=== PATIENT | female | born 1975 | race Caucasian/White ===

== ENCOUNTER 2018-05-23 19:52 | Emergency (ER) | payer OTHER, SELFPAY ==
[2018-05-23 20:10] VITALS: BP 111/65; PULSE 106; RESP 20; TEMP 37.8; O2SAT 99
[2018-05-23 20:17] VITALS: RESP 19
--- NOTE | 2018-05-23 20:29 | W.ED.GENAD ---
Discharge Plan Disposition Patient Disposition: HOME Condition: Good Discharge Details Chief Complaint: GenMedical Clinical Impression: Ovarian cyst, right Primary Care Provider: Mariaa,Local ED Provider: John Forrest Meds and New Rx's Prescriptions: No Action diphenhydramine HCl [Benadryl] 25 mg Capsule 25 mg PO HS RF: 0 Discharge Instructions Instructions: Ovarian Cyst (ED) Additional Instructions: May use ibuprofen as needed for pain. You should follow-up with your [employer] when you return to [place]. Return to ED if you develop high fever, worsening pain, persistent vomiting, other concerns. Referrals: Primary Care Provider [Outside] Medical Decision Making Patient presenting to ED because of right lower quadrant and flank pain. Maybe had hematuria today but not clear. Not describing vaginal bleeding or pelvic pain. She has other multiple complaints related to ENT/respiratory symptoms which she has had for months. She silva been on antibiotics. They are not acutely worse. We have discussed follow-up with her primary back in [place]. We will evaluate the acute symptoms of right lower quadrant pain. Her abdomen is completely benign. Her pain is not pelvic in nature. Urine test is negative. Differential includes kidney stone. Less likely appendicitis. Have ordered IV to give Toradol and Zofran. We will check labs. Will check a stone study. Urinalysis pending. Laboratory studies for the most part unremarkable. White count a little low at 3.89. Absolute neutrophils normal. Creatinine 1.3 but no baseline at this hospital; a little bit high but probably fine for this patient. Urine with small blood and small leukocyte esterase but is contaminated and would not treat for UTI. CT scan does not show evidence of kidney stones. There is a 2.6 cm ovarian cyst. Patient has history of same. No other acute process on CAT scan. Will be discharged home to use nonsteroidals as needed and follow-up with her [employer] back in [place]. Lab Data Lab results reviewed: Yes I reviewed the patient's lab results. HPI General Mode of arrival: ambulatory. Date/Time Provider Initiated Documentation: 05/23/18 20:27. Limitations to Documentation: no limitations. Information obtained by: patient. HPI Narrative: The patient is presenting to the ED because of right lower quadrant/back pain. She describes it as intermittent and sharp in nature. It has been bothering for a few days now. Today seem to be worse. Seems to be mostly in the right lower quadrant area with pain wrapping around to the back. She does not have any urinary symptoms. She may have had some spotting versus hematuria earlier today. She does not have a history of kidney stones. She has nausea but no vomiting or diarrhea. She had a low-grade fever feels generally weak. She also complains of continued respiratory symptoms as well as neck discomfort and mild headache. She is from the [facility]. She has been on a few rounds of antibiotics for upper respiratory type stuff. Her complaints of difficulty taking deep breath, wheezing, sinus problems, headaches are not new. They are not necessarily worse. She just finished antibiotics today. She did not come in for the symptoms but because she continues to have them she brought them up. She is here because of the pain in the right lower quadrant and back. Related Data Home Medications Medication Instructions Recorded Confirmed diphenhydramine HCl [Benadryl] 25 mg PO HS 05/23/18 05/23/18 Allergies Allergy/AdvReac Type Severity Reaction Status Date / Time No Known Allergies Allergy Unverified 05/23/18 20:16 General Stated Complaint: GenMedical MELISSA: 3 Review of Systems Constitutional Denies chills, Reports fever(s), Reports headache(s), Reports malaise and Reports weakness Eyes Denies change in vision, Denies eye discharge and Denies eye pain ENT Reports otalgia, Denies facial pain, Reports headache(s), Reports nasal congestion, Reports neck pain, Reports sinus pressure and Denies sore throat Cardiovascular Denies chest pain, Denies diaphoresis, Denies syncope, Denies palpitations and Reports dyspnea (feels like can't take deep breath) Respiratory Reports cough, Reports dyspnea (feels like can't take deep breath) and Reports wheezing Gastrointestinal Reports abdominal pain, Reports bloating, Denies diarrhea, Reports nausea, Denies vomiting and Denies hematemesis Genitourinary Denies abnormal vaginal bleeding, Denies hematuria, Denies urinary frequency, Denies dysuria, Denies pelvic pain, Reports flank pain, Denies urinary incontinence, Denies urinary hesitancy, Denies urinary urgency and Denies vaginal discharge Musculoskeletal Denies abnormal gait, Reports back pain, Denies myalgias, Denies arthralgias and Reports neck pain Integumentary/Breasts Denies erythema and Denies rash Neurologic Denies abnormal speech, Denies abnormal gait, Denies syncope, Reports headache(s), Denies focal weakness, Denies sensory deficit and Reports weakness Endocrine Denies palpitations Allergic/Immunologic Reports wheezing PFSH Medical History GERD (gastroesophageal reflux disease) (Chronic) Hypercholesterolemia (Chronic) Surgical History S/P cholecystectomy (Inactive) Social History Smoking/Tobacco Use Status: Never Exam Const General: cooperative, comfortable and no acute distress Orientation: alert and oriented x3 HENMT Head: normocephalic and atraumatic Ears: external ears normal and TM's normal bilaterally Face and sinus: normal facial exam and sinuses nontender Mouth: oropharynx normal and moist mucous membranes Throat: posterior oropharynx normal Eyes Conjunctivae: conjunctivae normal Pupils: PERRL EOM: EOM intact bilaterally Neck Neck: full ROM, no lymphadenopathy, no meningeal signs, trachea midline and supple Resp Effort & Inspection: normal respiratory effort Auscultation: clear to auscultation bilaterally Cardio Rate: regular rate Rhythm: regular rhythm Heart Sounds: S1 normal and S2 normal Pulses: normal peripheral pulses GI Inspection: non-distended Palpation: soft, not firm, no guarding and nontender Back/Spine/Pelvis Back: no CVA tenderness Skin General skin exam: no erythema Rashes: no rashes Trauma: no lacerations or abrasions Other: warm and dry Neuro General: alert, oriented x3, no focal motor deficits and CN's II-XI intact bilaterally Cognition: normal cognition Speech: speech normal Sensory Exam: no sensory deficits noted Extrem General: normal to inspection, full ROM and no clubbing, cyanosis or edema Psych Appearance: grossly normal Mental Status: mental status grossly normal Affect: normal affect Attitude: cooperative Course Vital Signs Temperature 100.0 F H 05/23/18 20:10 Pulse 106 H 05/23/18 20:10 Respiratory Rate 20 05/23/18 20:10 Blood Pressure 111/65 05/23/18 20:10 Pulse Oximetry 99 05/23/18 20:10 Temperature 100.0 F H 05/23/18 20:10 Temperature Source Temporal Artery Scan 05/23/18 20:10 Pulse 106 H 05/23/18 20:10 Respiratory Rate 19 05/23/18 20:17 Respiratory Effort Non-Labored 05/23/18 20:17 Respiratory Depth Normal 05/23/18 20:17 Respiratory Pattern Normal 12/26/18 20:17 Blood Pressure 111/65 12/26/18 20:10 Blood Pressure Position Sitting 05/23/18 20:10 Pulse Oximetry 99 05/23/18 20:10 Oxygen Delivery Method Room Air 05/23/18 20:10 Oxygen Flow Rate 0 05/23/18 20:10 Pain Level 9 05/23/18 20:10
[2018-05-23 20:37] LABS: Bilirubin Negative (Negative); Blood Small (Negative); Clarity Clear; Glucose Negative (Negative); Ketones 15 mg/dL (Negative); Leukocyte Esterase Small (Negative); Nitrite Negative (Negative); Specific Gravity 1.025 (1.005-1.025); Urobilinogen 0.2 EU/dL (Up TO 0.2)
--- NOTE | 2018-05-23 20:46 | DI.CT_ITS ---
SYMPTOM/DIAGNOSIS: RIGHT FLANK/RLQ PAIN RENAL COLIC CT: The study was carried out according to the usual protocol without contrast enhancement. There is no evidence of obstruction. There is no evidence of calculi in the ureters or bladder. The patient is status post cholecystectomy. The abdominal organs appear normal. There is no evidence of pathology involving the abdominal aorta. The appendix is normal. Note is made of a 2.6 cm right adnexal cyst. There is also note made of a trace quantity of fluid in the pelvis. There is no free air. There is no free fluid in the intraperitoneal space. No acute bony abnormality is seen. SUMMARY: 2.6 cm right adnexal cyst is probably ovarian in origin. There is no evidence of track pathology. Further evaluation of this patient with a pelvic ultrasound is suggested when clinically appropriate.
[2018-05-23 21:00] LABS: Abs Immature Grans 0.01 k/cumm (0.0-0.09); Absolute Basophil Count 0.01 k/cumm (0.0-0.2); Absolute Eosinophil Count 0.36 k/cumm (0.0-0.7); Absolute Lymphocyte Count 0.29 k/cumm (1.2-3.4); Absolute Monocyte Count 0.38 k/cumm (0.11-0.7); Basophils % 0.3; Eosinophils % 9.3; HCT 37.6 % (36.0-46.0); HGB 12.8 g/dL (12.0-15.5); Immature Grans % 0.3; Lymphocytes % 7.5; Mean Corpuscular Hemoglobin 30.8 pg (27.0-33.0); Mean Corpuscular Volume 90.4 fL (80-95); Mean Platelet Volume 8.5 fL (8.0-11.0); Monocytes % 9.8; Neutrophils % 72.8; Platelet Count 236 x1000/uL (130-400); RBC 4.16 m/cumm (4.00-5.20); RBC Distribution Width 13.3 % (11.7-14.6); White Blood Cell Count 3.89 k/cumm (4.4-10.8)
[2018-05-23 21:02] LABS: Absolute Neutrophil Count 2.83 k/cumm (1.2-6.7)
[2018-05-23 21:05] LABS: Bacteria Moderate HPF (Negative); C & S Indicated? No/Sq. Contamination; Casts Negative LPF (Negative); Crystals Negative HPF (Negative); Epithelial Cells Many HPF (Negative); Mucus Negative (Negative); RBC 0-2 (0-2)
[2018-05-23 21:16] LABS: ALT 23 U/L (12-78); AST 21 U/L (15-37); Albumin 3.8 g/dL (3.4-5.0); Alkaline Phosphatase 54 U/L (46-116); Anion Gap 9.2 mmol/L (3-11); BUN 14 mg/dL (7-18); Bilirubin, Total 0.2 mg/dL (0.2-1.0); CO2 26.8 mmol/L (21.0-32.0); CREATININE 1.28 mg/dL (0.55-1.02); Calcium 8.6 mg/dL (8.5-10.1); Chloride 99 mmol/L (98-107); Estimated GFR 45.09 (mL/min/1.73m2); Glucose 96 mg/dL (70-100); Lipase 101 U/L (73-393); Potassium 3.9 mmol/L (3.5-5.1); Sodium 135 mmol/L (136-145); Total Protein 7.4 g/dL (6.4-8.2)
[2018-05-23] MEDS: Ondansetron 4 MG/2 ML VIAL IVP (21:25)
[2018-05-23] MEDS: Ketorolac 30 MG/ML VIAL IVP (21:25)
--- NOTE | 2018-05-23 21:33 | DI.VRAD_ITS ---
EXAM: CT Abdomen and Pelvis Without Contrast EXAM DATE/TIME: 05/23/2018 8:47 PM CLINICAL HISTORY: 43 years old, female; Pain; Abdominal pain; Other: RT flank pain TECHNIQUE: Axial computed tomography images of the abdomen and pelvis without contrast. Coronal and sagittal reformatted images were created and reviewed. COMPARISON: No relevant prior studies available. FINDINGS: There is no hydroureteronephrosis or other evidence of obstructive uropathy. No radiopaque renal, ureteral or bladder calculi are identified. Status post cholecystectomy. The visualized portions of the abdominal viscera are unremarkable. The abdominal aorta is normal in caliber. Normal appendix. There is a 2.6 cm right adnexal cyst. There is trace fluid in the pelvis. No free air. Unremarkable urinary bladder. No fracture. IMPRESSION: 2.6 cm right adnexal cyst. No evidence of obstructive uropathy. Dictated and Authenticated by: Artie Zaldivar MD. Ordering:AUDELIA Lopez MD
[2018-05-23 22:20] VITALS: BP 111/65; PULSE 106; RESP 19; TEMP 37.8; O2SAT 99
== END 2018-05-23 22:00 | disposition home or self-care (01) ==
PROVIDERS: Emergency Provider Emergency Medicine
DX: N83.201 Unspecified ovarian cyst, right side (principal)
CPT/HCPCS: 36415; 80053; 81025; 83690; 96374; 96375; 99284; 74176; 81003; 81015; 85025; J1885; J2405